=== PATIENT | male | born 1970 | race Caucasian/White ===

== ENCOUNTER 2016-08-27 15:01 | Emergency (ER) | payer BC, SELFPAY ==
--- NOTE | 2016-08-30 13:10 | ER ---
ADMIT: 08/27/2016 RM/LOC: ER [facility] MR#: [id number] [address] [facility] [id number] RIAN EMNDOZA [address] [place] [id number] Emergency Room Report SEX: M AGE: 46 : 1970 DATE: 08/27/2016 HISTORY OF PRESENT ILLNESS: A 46-year-old cut his left small finger tip on a whisky bottle, has 1 cm laceration. Dermabond, Band-Aid, discharged after tetanus given, booster given. Follow up as needed. DIAGNOSIS: Laceration with glue. Clement Mckinley MD/ christin JOB #: [id number] CC: Clement Mckinley MD, Attending Physician Filiberto Barnhart MD, Family Physician
== END 2016-08-27 23:50 | disposition home or self-care (01) ==
LOC: ER 15:01
PROC: 0HQGXZZ Repair Left Hand Skin, External Approach (ICD-10-PCS; principal; 2016-08-27)
DX: S61.217A Laceration without foreign body of left little finger without damage to nail, initial encounter (principal); E11.9 Type 2 diabetes mellitus without complications; Z23 Encounter for immunization; Z79.899 Other long term (current) drug therapy; W45.8XXA Other foreign body or object entering through skin, initial encounter; Y92.009 Unspecified place in unspecified non-institutional (private) residence as the place of occurrence of the external cause